=== PATIENT | female | born 1985 | race Caucasian/White ===

== ENCOUNTER 2016-10-27 23:26 | Emergency (ER) | payer MEDICAID, OTHER ==
[~2016-10-27] VITALS: Ht 165.1 cm; Wt 112.0 kg
[2016-10-27 23:33] VITALS: BP 140/70
--- NOTE | 2016-10-28 01:13 | NUR ---
PT TAKEN TO BED 3
--- NOTE | 2016-10-28 01:28 | NUR ---
31 Y/O F W/C/O MIDDLE/LOWER ABD PAIN AND DIARRHEA X 2 WKS ON AND OFF. DENIES ANY N/V OR FEVER. NO S/S OF DISTRESS NOTED AT THE MOMENT. ER MD MADE AWARE.
--- NOTE | 2016-10-28 02:00 | NUR ---
Dr. Neal evaluating patient at bedside.
[2016-10-28 02:25] VITALS: BP 135/63
--- NOTE | 2016-10-28 02:25 | NUR ---
Patient discharged with v/s stable. Written and verbal after care instructions given and explained. Patient alert, oriented and verbalized understanding of instructions. Ambulatory with steady gait. All questions addressed prior to discharge. ID band removed. Patient advised to follow up with PMD. Rx of Arnett and Cipro given. Patient educated on indication of medication including possible reaction and side effects. Opportunity to ask questions provided and answered.
== END 2016-10-28 02:25 | disposition home or self-care (01) ==
LOC: MED 23:26
DX: N39.0 Urinary tract infection, site not specified (principal); Z88.0 Allergy status to penicillin; Z88.6 Allergy status to analgesic agent
CPT/HCPCS: 81002; 81025; 99283